=== PATIENT | female | born 1965 | race Two or more races ===

== ENCOUNTER 2020-09-13 08:30 | Outpatient (CLI) | payer OTHER | END 2020-09-13 23:59 | disposition home or self-care (01) | LOC: WOU 08:30 | PROVIDERS: ATTEND Specialist | DX: T86.821 Skin graft (allograft) (autograft) failure (principal); C50.012 Malignant neoplasm of nipple and areola, left female breast; Z90.13 Acquired absence of bilateral breasts and nipples | CPT/HCPCS: G0463 ==

== ENCOUNTER 2020-11-01 12:40 | Outpatient (CLI) | payer OTHER | END 2020-11-01 23:59 | disposition home or self-care (01) | LOC: WOU 12:40 | PROVIDERS: ATTEND Specialist | DX: T86.821 Skin graft (allograft) (autograft) failure (principal); C50.012 Malignant neoplasm of nipple and areola, left female breast | CPT/HCPCS: G0463 ==